=== PATIENT | female | born 1955 | race Caucasian/White ===

== ENCOUNTER → 2018-06-04 | Day surgery (SDC) | payer BC ==
[2018-06-03 16:25] LABS: BASOPHILS # (AUTO) 0.1 (0.0-0.1); BASOPHILS % 1.5 % (0.0-1.0); EOSINOPHILS # (AUTO) 0.3 (0.0-0.4); HEMATOCRIT 50.1 % (34.2-44.1); HEMOGLOBIN 16.7 g/dL (12.0-16.0); LYMPHOCYTES # (AUTO) 4.3 (1.0-3.2); MEAN CORPUSCULAR HEMOGLOBIN 32.9 pg (28-32); MEAN CORPUSCULAR HGB CONC 33.3 g/dL (31-35); MEAN CORPUSCULAR VOLUME 98.8 fL (81-99); MONOCYTES # (AUTO) 0.7 (0.2-0.8); MONOCYTES % 7.8 % (4.4-11.3); NEUTROPHILS # (AUTO) 3.5 (2.1-6.9); NEUTROPHILS % 39.5 % (38.7-80.0); PLATELET COUNT 332 x10e3/uL (140-360); RED BLOOD COUNT 5.07 x10e6/uL (3.6-5.1); RED CELL DISTRIBUTION WIDTH 12.3 % (11.7-14.4)
[2018-06-03 16:39] LABS: INR 0.87; PROTHROMBIN TIME 12.7 seconds (11.9-14.5)
[2018-06-03 16:46] LABS: ALANINE AMINOTRANSFERASE 9 IU/L (0-55); ALBUMIN 3.6 g/dL (3.5-5.0); ALBUMIN/GLOBULIN RATIO 1.1 (0.8-2.0); ALKALINE PHOSPHATASE 99 IU/L (40-150); ANION GAP 12.9 mmol/L (8-16); BLOOD UREA NITROGEN 10 mg/dL (7-26); BUN/CREATININE RATIO 11 (6-25); CALCIUM 9.4 mg/dL (8.4-10.2); CARBON DIOXIDE 26 mmol/L (22-29); CHLORIDE 106 mmol/L (98-107); CHOL/HDL RATIO 4.2 (3.0-3.6); CHOLESTEROL 208 MD/DL (0-199); CREATININE, SERUM 0.87 mg/dL (0.57-1.11); EST GLOMERULAR FILTRATION RATE > 60 ML/MIN (60-); GLUCOSE 89 mg/dL (74-118); HDL CHOLESTEROL 49 MG/DL (40-60); LDL CHOLESTEROL 118 MG/DL (60-130); POTASSIUM 4.9 mmol/L (3.5-5.1); SODIUM 140 mmol/L (136-145); TRIGLYCERIDES 206 MG/DL (0-149)
[2018-06-04] VITALS (8 sets, daily range): BP systolic 97–133; BP diastolic 47–69
[~2018-06-04] VITALS: Ht 162.6 cm; Wt 66.2 kg
[~2018-06-04] MED LIST: ALPRAZOLAM 0.5 MG TAB ONE; ASPIR 8181 MG PO; BYSTOLIC5 MG PO; CLONAZEPAM1 MG PO; CYMBALTA30 MG PO; DIPHENHYDRAMINE HCL 25 MG CAP ONE; FENTANYL CITRATE/PF 100MCG/2 ML INJ ONE; HEPARIN SOD (PORCINE) 1000 UNIT/ML 30ML ONE; HEPARIN SOD/SOD CHLORIDE 2,000 ML ONE; IOPAMIDOL 370 MG/ML 200 ML INFUS..BTL INJ ONE; MIDAZOLAM HCL 2 MG/2 ML VIAL ONE; NITROGLYCERIN/D5W 200 MCG/ML 250 ML ONE; SIMVASTATIN40 MG PO; SODIUM CHLORIDE 0.9% 1000ML 1,000 ML ONE; TRAMADOL-ACETAMI1 EA PO; VERAPAMIL HCL 2.5 MG/ML 2 ML VIAL ONE; Z.0.FLEXERIL10 MG PO; Z.0.PREDNISONE5 M1; ZOLOFT100 MG PO
--- OUTSIDE RECORDS SUMMARY | 2018-06-04 10:33 | XMS REPORT | Clinical Summary ---
Author Author [facility] Address Unknown Phone Unavailable Care Team Providers Care Skin Carver Name Role Phone Chance Olivares MD PCP Allergies Comments Active Allergy Reactions Severity Noted Date Tears skin Adhesive Tape-Silicones Other (See 05/06/2017 Comments) Medications End Date Status Medication Sig Dispensed Refills Start Date Active nebivolol (BYSTOLIC) 5 MG Take 5 mg by 0 tablet mouth daily. Active simvastatin (ZOCOR) 20 MG Take 20 mg by 0 tablet mouth nightly. Active omeprazole (PriLOSEC) 20 Take 20 mg by 0 MG capsule mouth daily. Active BESIVANCE 0.6 % 1 drops,suspension 8 Active PROLENSA 0.07 % 1 ophthalmic solution 8 Active LOTEMAX 0.5 % drops,gel 1 8 Active CHANTIX 1 mg tablet TK 1 T PO BID 0 8 Active ergocalciferol (VITAMIN TK 1 C PO Q 2 D2) 50,000 unit capsule WEEK FOR 12 8 WEEKS Active aspirin (ECOTRIN) 81 MG Take 81 mg by 0 enteric coated tablet mouth daily. Active DULoxetine (CYMBALTA) 30 TK ONE C PO D 1 MG capsule 8 10/27/2017 Discontinued morPHINE (MSIR) 15 MG Take 15 mg by 0 tablet mouth every 4 (four) hours as needed for severe pain. 10/27/2017 Discontinued topiramate (TOPAMAX) 100 Take 50 mg by 0 MG tablet mouth 2 (two) times a day. 11/26/2017 Discontinued DULoxetine (CYMBALTA) 60 Take 60 mg by 0 MG capsule mouth daily. 11/05/2017 Discontinued pregabalin (LYRICA) 75 MG Take 75 mg by 0 capsule mouth 2 (two) times a day. 11/05/2017 Discontinued traZODone (DESYREL) 100 Take 100 mg 0 MG tablet by mouth nightly. 10/27/2017 Discontinued methocarbamol Take 1 tablet 40 tablet 0 (ROBAXIN-750) 750 MG every 6 hours 7 tablet as needed for spasms 11/05/2017 Discontinued cyanocobalamin 1,000 INJECT 1 MLS 0 mcg/mL injection Q WEEK 8 Active Problems Problem Noted Date Combined forms of age-related cataract of left eye 11/24/2017 Resolved Problems Problem Noted Date Resolved Date Combined forms of age-related cataract of right eye 11/05/2017 11/24/2017 Encounters Care Team Description Date Type Specialty Chance Olivares MD Screening breast examination 04/27/2018 Hospital Radiology Encounter Chance Olivares MD Screening breast examination (Primary Dx) 04/26/2018 Transcribe Access Orders Isha Fitzgerald MD 11/26/2017 Anesthesia General Surgery Event Jarred Sinha MD PHACOEMULSIFICATION, CATARACT, WITH IOL IMPLANTATION LEFT EYE 11/26/2017 Surgery General Surgery Jarred Sinha MD 11/26/2017 Hospital General Surgery Encounter Isha Fitzgerald MD 11/05/2017 Anesthesia General Surgery Event Jarred Sinha MD PHACOEMULSIFICATION, CATARACT, WITH IOL IMPLANTATION-Right 11/05/2017 Surgery General Surgery Jarred Sinha MD 11/05/2017 Hospital General Surgery Encounter after 06/03/2017 Social History Date Tobacco Use Types Packs/Day Years Used Current Every Day Smoker 35 Smokeless Tobacco: Never Used Alcohol Use Drinks/Week oz/Week Comments No Sex Assigned at Date Recorded Not on file Industry Job Start Date Occupation Not on file Not on file Not on file Travel End Travel History Travel Start No recent travel history available. Last Filed Vital Signs Time Taken Vital Sign Reading 11/26/2017 11:04 AM CDT Blood Pressure 101/57 11/26/2017 11:04 AM CDT Pulse 62 11/26/2017 10:56 AM CDT Temperature 36.1 C (96.9 F) 11/26/2017 11:04 AM CDT Respiratory Rate 18 11/26/2017 11:04 AM CDT Oxygen Saturation 98% - Inhaled Oxygen - Concentration 11/26/2017 9:32 AM CDT Weight 61.2 kg (135 lb) 11/05/2017 9:56 AM CDT Height 162.6 cm (5' 4") 11/26/2017 9:32 AM CDT Body Mass Index 23.17 Plan of Treatment Health Maintenance Due Date Last Done Comments CERVICAL CANCER SCREENING 1977 COLON CANCER SCREENING 2006 SHINGRIX VACCINE (1 of 2) 2006 ZOSTER VACCINE 2016 INFLUENZA VACCINE 01/27/2018 BREAST CANCER SCREENING 04/27/2020 04/27/2018, 12/08/2011 Implants Device Identifier Shelf Expiration Date Model / Serial / Lot Implanted Type Area Manufactur er [id number] FreeBostInno Remote Control Kit - IPM N/A: N/A [employer] [id number] IMPLANT SCIENTIFIC Implanted: 05/06/2017 (Quantity not DEVICES - on file) NEUROMODUL ATION 12/10/2018 MS [id number] / / [id number] Artisan Mri 2x8 Spectral Scientist - IPM Posterior: [place] [id number] PACEMAKERS Spine Cervical SCIENTIFIC Implanted: 05/06/2017 (Quantity not - on file) NEUROMODUL ATION 10/01/2018 [id number] / / [id number] Model Md-1232b Precision Montage Patient Posterior: Fragegg Mri 16 Contact Implantable Pulse Care Back, Other SCIENTIFIC Generator Kit than Spine ANTOLIN. Implanted: Qty: 1 on 05/06/2017 by Omar Jj MD 08/25/2018 [id number] / / [id number] Matrix Hmstc Floseal 10ml W/ Humn Surgical Posterior: JAMES F2 - [id number] Implants; Spine Cervical BIOSCIENCE Implanted: 05/06/2017 (Quantity not Expanders; on file) Extenders; Surgical Wires 08/26/2021 SND1T3 16 5 / [id number] / [id number] Lens Acrysof I.Q Restore Toric +3 Right: Eye LUKE 16.5 - [id number] - [id number] LABORATORI Implanted: Qty: 1 on 11/05/2017 by ES Jarred Reynaga MD 08/26/2021 SND1T3 16 5 / [id number] / [id number] Lens Acrysof I.Q Restore Toric +3 Left: Eye LUKE 16.5 - [id number] - [id number] LABORATORI Implanted: Qty: 1 on 11/26/2017 by [employer] Jarred Reynaga MD Procedures Comments Procedure Name Priority Date/Time Associated Diagnosis MAMMO BREAST SCREEN Routine 04/27/2018 Screening breast TOMOSYNTHESIS BILATERAL 3:36 PM CDT examination PHACOEMULSIFICATION, 11/26/2017 Age-related nuclear CATARACT, WITH IOL 10:00 AM CDT cataract of left eye IMPLANTATION Special Needs SND1T3 + 17.0 AND MN6AD1 +16.5 RESTOR TORIC PHACOEMULSIFICATION, 11/05/2017 Age-related nuclear CATARACT, WITH IOL 10:40 AM CDT cataract of right eye IMPLANTATION Special Needs SND1T3 + 16.5VE4IS1 + 16.5 after 06/03/2017 Results * Mammo Breast Screen Tomosynthesis Bilateral (04/27/2018 3:36 PM CDT) Narrative Performed At EXAMINATION:MAMMO BREAST SCREEN TOMOSYNTHESIS [id number]/30/2018 [employer] Computer-assisted detection was utilized in the interpretation of this exam. COMPARISONS:11/24/2013 INDICATION:62 year-old female who presents for annual evaluation. FINDINGS: The breast parenchyma is heterogeneously dense. This limits the overall sensitivity of mammography, possibly obscuring the detection of small masses. Within these limitations there are no suspicious mammographic findings. Diffuse nodularity of the bilateral breast parenchyma is not significantly changed when differences in patient position and technique are taken into consideration. IMPRESSION: No mammographic evidence of malignancy. In the absence of any clinical change, continued routine annual mammographic surveillance per ACR guidelines is recommended. BI-RADS 2: BENIGN. [id number] Performing Organization Address City/State/Zipcode Phone Number [employer] [address] [place] [address] after 06/03/2017 Insurance Payer Benefit Subscriber ID Type Phone Address Plan / Group BCBS BCBS xxxxxxxxxxxx PPO CHOICE PPO/CHERYL DOS SANTOS PPO Advance Directives Patient has advance care planning documents on file. For more information, michael hartmann contact: Ever Alfred [address] [place] [address]
--- NOTE | 2018-06-04 16:09 | Operative Report ---
DATE OF PROCEDURE: June 04, 2018 INDICATIONS: Coronary artery disease, abnormal stress test. PROCEDURES PERFORMED 1. Ultrasound-guided access into the right radial artery. 2. Left heart catheterization, selective coronary angiography, left ventriculography. 3. Deployment of right wrist transradial band. COMPLICATIONS: None. RECOMMENDATIONS: Medical therapy. Access obtained in the right radial artery using ultrasound guidance. A 5-Rw[place] sheath was placed. Diagnostic coronary angiogram revealed widely patent left main. Left anterior descending artery and right coronary artery with mild disease, 10 to 20% luminal stenosis. Obtuse marginal and circumflex stents widely patent. LV ejection fraction 60%. LV end-diastolic pressure of 8. No gradient across the aortic valve on pullback. Right wrist TR band applied. Patient discharged home same day. Job#: [id number] LOTTIE
== END | disposition home or self-care (01) ==
LOC: CATH LAB 10:31
PROVIDERS: ATTEND Internal Medicine Interventional Cardiology
DX: I25.118 Atherosclerotic heart disease of native coronary artery with other forms of angina pectoris (principal); R94.39 Abnormal result of other cardiovascular function study; I10 Essential (primary) hypertension; F17.210 Nicotine dependence, cigarettes, uncomplicated; Z01.812 Encounter for preprocedural laboratory examination; Z79.82 Long term (current) use of aspirin; Z82.49 Family history of ischemic heart disease and other diseases of the circulatory system
CPT/HCPCS: 36415; 80053; 80061; 85025; 85610; 93458; C1766; J1644; J2250; J7030; Q9967